=== PATIENT | male | born 1960 | race Caucasian/White ===

== ENCOUNTER 2024-05-10 20:01 | Inpatient (IN) | payer MEDICARE, OTHER ==
[~2024-05-10] VITALS: Ht 177.8 cm; Wt 78.0 kg
[2024-05-10 21:28] LABS: COVID AG,FIA SOURCE NASAL SWAB
[2024-05-10 21:39] LABS: SARS-COV2 (COVID) ANTIGEN,FIA Negative (Negative)
[2024-05-10 21:54] LABS: BASOPHILS % (AUTO) 3.7 % (0.0-2.0); EOSINOPHILS % (AUTO) 1.6 % (1.0-6.0); HEMOGLOBIN 11.5 g/dL (13.5-17.5); LYMPHOCYTES # (AUTO) 1.2 K/uL (1.0-4.8); LYMPHOCYTES % (AUTO) 31.2 % (22.0-44.0); MEAN CORPUSCULAR HEMOGLOBIN 31.8 pg (26.0-34.0); MEAN CORPUSCULAR VOLUME 99 fL (80-100); MONOCYTES # (AUTO) 0.6 K/uL (0.1-1.0); MONOCYTES % (AUTO) 15.3 % (2.0-9.0); NEUTROPHILS # (AUTO) 1.9 K/uL (1.8-7.7); NEUTROPHILS % (AUTO) 48.2 % (40.0-70.0); PLATELET COUNT (AUTO) 103 K/uL (150-450); RED BLOOD CELL COUNT(AUTO) 3.63 MIL/uL (4.50-5.90); RED CELL DISTRIBUTION WIDTH 14.4 % (11.5-14.5); WHITE BLOOD COUNT (AUTO) 3.9 K/uL (4.5-11.0)
[2024-05-10 22:02] LABS: ANION GAP 8 mmol/L (8-16); CALCIUM, TOTAL 8.2 mg/dL (8.8-10.5); CARBON DIOXIDE 28 mmol/L (22-29); CHLORIDE 100 mmol/L (98-107); CREATININE 0.76 mg/dL (0.60-1.30); GLOMERULAR FILTR. RATE CALC > 60 mL/min (>60); GLUCOSE,RANDOM 92 mg/dL (70-110); POTASSIUM 3.7 mmol/L (3.5-5.1); SODIUM SERUM 136 mmol/L (136-145); UREA NITROGEN, BLOOD 6 mg/dL (7-18)
[2024-05-10 22:03] LABS: ALCOHOL, BLOOD (SERUM) 125 mg/dL (0-10)
[2024-05-11] VITALS (13 sets, daily range): BP systolic 125–164; BP diastolic 68–106; PULSE 84–109; RESP 16–20; TEMP 98–99.7; O2SAT 95–99
[2024-05-11 02:34] LABS: APPEARANCE,URINE CLEAR (CLEAR); BILIRUBIN,URINE NEGATIVE (NEGATIVE); COLOR,URINE YELLOW (YELLOW); GLUCOSE, URINE (UA) NEGATIVE (NEGATIVE); KETONES,URINE TRACE mg/dL (NEGATIVE); LEUKOCYTE ESTERASE ,URINE NEGATIVE (NEGATIVE); NITRATE,URINE NEGATIVE (NEGATIVE); OCCULT BLOOD,URINE NEGATIVE (NEGATIVE); PROTEIN,URINE TRACE mg/dL (NEGATIVE); SPECIFIC GRAVITIY, URINE 1.014 (1.003-1.030)
[2024-05-11 02:42] LABS: AMPHET/METH SCREEN,URINE NEGATIVE (NEGATIVE); BARBITURATE SCREEN, URINE NEGATIVE (NEGATIVE); BENZODIAZEPINES SCREEN,URINE NEGATIVE (NEGATIVE); CANNABINOID SCREEN,URINE POSITIVE (NEGATIVE); COCAINE SCREEN,URINE NEGATIVE (NEGATIVE); METHADONE SCREEN, URINE NEGATIVE (NEGATIVE); OPIATE SCREEN,URINE NEGATIVE (NEGATIVE); PHENCYCLIDINE SCREEN,URINE NEGATIVE (NEGATIVE)
[2024-05-11 02:46] LABS: ALCOHOL, URINE DRUG SCREEN POSITIVE (NEGATIVE)
[2024-05-11] MEDS: FLECAINIDE ACETATE 50 MG TABLET PO SCH (16:00)
[2024-05-11] MEDS: LORazepam 2 MG TABLET PO PRN (17:20)
[2024-05-11] MEDS ORDERED: ChlordiazePOXIDE HCL 25 MG CAPSULE PO PRN (18:00)
[2024-05-12 04:25] VITALS: BP 147/95; PULSE 88; RESP 18; TEMP 97.9; O2SAT 100
[2024-05-12] MEDS ORDERED: ChlordiazePOXIDE HCL 25 MG CAPSULE PO PRN (07:00)
[2024-05-12 08:04] VITALS: BP 134/77; PULSE 85; RESP 18; TEMP 97.7; O2SAT 99
[2024-05-12 08:10] VITALS: BP 134/77; PULSE 85; RESP 18; TEMP 97.7; O2SAT 99
[2024-05-12] MEDS: THIAMINE 100 MG TABLET PO SCH (08:12)
[2024-05-12] MEDS: ChlordiazePOXIDE HCL 25 MG CAPSULE PO SCH (08:13)
[2024-05-12] MEDS: FOLIC ACID 1 MG TABLET PO SCH (08:13)
[2024-05-12 08:23] LABS: HEMOGLOBIN A1C 4.4 % (3.8-5.6)
[2024-05-12 08:43] LABS: CHOL/HDL RATIO 2.6 (4.2-7.3)
[2024-05-12 12:15] VITALS: BP 130/79; PULSE 80; RESP 18; TEMP 98.3; O2SAT 96
[2024-05-12] MEDS ORDERED: MAG HYDROX/ALUMINUM HYD/SIMETH ES 30 ML SUSPENSION UDCUP PO PRN (12:15)
[2024-05-12] MEDS ORDERED: ALBUTEROL SULFATE HFA 90 MCG/PUFF 8 GM INHALER IH PRN (12:15)
[2024-05-12] MEDS ORDERED: DOCUSATE SODIUM 100 MG CAPSULE PO PRN (12:15)
[2024-05-12] MEDS ORDERED: LOPERAMIDE HCL 2 MG CAPSULE PO PRN (12:15)
[2024-05-12] MEDS ORDERED: PETROLATUM,WHITE 28 GM JELLY TP PRN (12:15)
[2024-05-12] MEDS ORDERED: ONDANSETRON 4 MG TABLET PO PRN (12:15)
[2024-05-12] MEDS ORDERED: IBUPROFEN 400 MG TABLET PO PRN (12:15)
[2024-05-12] MEDS ORDERED: CloNIDine HCL 0.1 MG TABLET PO PRN (12:15)
[2024-05-12] MEDS ORDERED: NICOTINE 14 MG/24 HOUR PATCH TD PRN (12:15)
[2024-05-12] MEDS ORDERED: ACETAMINOPHEN 325 MG TABLET PO PRN (12:15)
[2024-05-12] MEDS ORDERED: MAGNESIUM HYDROXIDE SUSPENSION 30 ML UDCUP PO PRN (12:15)
[2024-05-12] MEDS ORDERED: GuaiFENesin/D-METHORPHAN [SUGAR-FREE] 200-20MG/10 ML SYRUP UDCUP PO PRN (12:15)
[2024-05-12 16:56] VITALS: BP 129/86; PULSE 100; RESP 17; O2SAT 100
[2024-05-12 20:00] VITALS: BP 127/71; PULSE 99; RESP 18; TEMP 97.5; O2SAT 99
[2024-05-13] VITALS (8 sets, daily range): BP systolic 104–154; BP diastolic 65–90; PULSE 72–104; RESP 16–18; TEMP 97.8–98.8; O2SAT 96–100
[2024-05-13] MEDS: MAGNESIUM OXIDE 400 MG TABLET PO SCH (08:26)
[2024-05-13] MEDS: POTASSIUM CHLORIDE 10 MEQ ER TABLET PO SCH (08:26)
[2024-05-13 08:59] LABS: HEMOGLOBIN A1C 4.2 % (3.8-5.6)
[2024-05-13 09:20] LABS: CHOL/HDL RATIO 3.1 (4.2-7.3); THYROID STIMULATING HORMONE 2.31 uIU/mL (0.36-3.74)
[2024-05-14] MEDS ORDERED: ChlordiazePOXIDE HCL 10 MG CAPSULE PO PRN (07:00)
[2024-05-14] MEDS: ChlordiazePOXIDE HCL 10 MG CAPSULE PO SCH (08:21)
[2024-05-14 08:24] VITALS: BP 124/68; PULSE 89; RESP 18; TEMP 97; O2SAT 98
[2024-05-14 11:41] VITALS: BP 148/83; PULSE 96; RESP 18; TEMP 97.2; O2SAT 98
[2024-05-14] MEDS: HALOPERIDOL 5 MG TABLET PO PRN (12:15)
[2024-05-14 20:00] VITALS: BP 150/87; PULSE 99; RESP 18; TEMP 98.3; O2SAT 97; O2SAT 98
[2024-05-14] MEDS: ZOLPIDEM TARTRATE 5 MG TABLET PO PRN (20:08)
[2024-05-15] MEDS ORDERED: ChlordiazePOXIDE HCL 10 MG CAPSULE PO PRN (07:00)
[2024-05-15 12:37] VITALS: BP 146/75; PULSE 98; RESP 16; TEMP 98.9; O2SAT 97
[2024-05-15] MEDS: POTASSIUM CHLORIDE 20 MEQ ER TABLET PO ONE (13:10)
[2024-05-15 17:06] VITALS: BP 140/80; PULSE 88; RESP 18; TEMP 98.1; O2SAT 98
[2024-05-15 17:08] VITALS: BP 122/82; PULSE 88; RESP 18; TEMP 98.2; O2SAT 98
[2024-05-15 20:00] VITALS: BP 149/85; PULSE 99; RESP 18; TEMP 98; O2SAT 98
[2024-05-16 08:06] VITALS: BP 121/72; PULSE 98; RESP 16; TEMP 97.8; O2SAT 94
[2024-05-16] MEDS: POTASSIUM CHLORIDE 20 MEQ ER TABLET PO ONE (10:49)
[2024-05-16 20:16] VITALS: BP 150/91; PULSE 88; RESP 17; TEMP 97.1; O2SAT 95
[2024-05-17 09:34] LABS: ANION GAP 6 mmol/L (8-16); CALCIUM, TOTAL 9.4 mg/dL (8.8-10.5); CARBON DIOXIDE 31 mmol/L (22-29); CHLORIDE 99 mmol/L (98-107); CREATININE 0.84 mg/dL (0.60-1.30); GLOMERULAR FILTR. RATE CALC > 60 mL/min (>60); GLUCOSE,RANDOM 84 mg/dL (70-110); POTASSIUM 4.1 mmol/L (3.5-5.1); SODIUM SERUM 136 mmol/L (136-145); UREA NITROGEN, BLOOD 9 mg/dL (7-18)
[2024-05-17 09:37] LABS: APPEARANCE,URINE CLEAR (CLEAR); BILIRUBIN,URINE NEGATIVE (NEGATIVE); COLOR,URINE LIGHT YELLOW (YELLOW); GLUCOSE, URINE (UA) NEGATIVE (NEGATIVE); KETONES,URINE NEGATIVE (NEGATIVE); LEUKOCYTE ESTERASE ,URINE NEGATIVE (NEGATIVE); NITRATE,URINE NEGATIVE (NEGATIVE); OCCULT BLOOD,URINE NEGATIVE (NEGATIVE); PROTEIN,URINE NEGATIVE (NEGATIVE); SPECIFIC GRAVITIY, URINE 1.009 (1.003-1.030); UROBILINOGEN,URINE <=1.0 mg/dL (<=1.0)
[2024-05-17 09:48] LABS: ALCOHOL, URINE DRUG SCREEN NEGATIVE (NEGATIVE); AMPHET/METH SCREEN,URINE NEGATIVE (NEGATIVE); BARBITURATE SCREEN, URINE NEGATIVE (NEGATIVE); BENZODIAZEPINES SCREEN,URINE POSITIVE (NEGATIVE); CANNABINOID SCREEN,URINE POSITIVE (NEGATIVE); COCAINE SCREEN,URINE NEGATIVE (NEGATIVE); METHADONE SCREEN, URINE NEGATIVE (NEGATIVE); OPIATE SCREEN,URINE NEGATIVE (NEGATIVE); PHENCYCLIDINE SCREEN,URINE NEGATIVE (NEGATIVE)
[2024-05-17 09:50] VITALS: BP 127/80; PULSE 113; RESP 18; TEMP 97.6; O2SAT 99
[2024-05-17] MEDS: RisperiDONE 1 MG TABLET PO SCH (11:52)
[2024-05-17 16:43] VITALS: BP 121/75; PULSE 98; RESP 18
[2024-05-17 20:25] VITALS: BP 120/69; PULSE 75; RESP 18; TEMP 97.5; O2SAT 97
[2024-05-18 08:13] VITALS: BP 127/75; PULSE 71; RESP 18; TEMP 96.2; O2SAT 100
[2024-05-18] MEDS ORDERED: RISP-31 PO (12:14)
[2024-05-18] MEDS ORDERED: FLEC50 PO (12:21)
== END 2024-05-18 13:00 | disposition home or self-care (01) | DRG 885 ==
LOC: EMS 20:01 → B2X 05-11 08:33
PROVIDERS: ADMIT Psychiatry & Neurology Child & Adolescent Psychiatry; ATTEND Psychiatry & Neurology Child & Adolescent Psychiatry
PROC: GZ56ZZZ Individual Psychotherapy, Supportive (ICD-10-PCS; principal; 2024-05-12)
DX: F29 Unspecified psychosis not due to a substance or known physiological condition (principal); F33.2 Major depressive disorder, recurrent severe without psychotic features; D61.818 Other pancytopenia; Z20.822 Contact with and (suspected) exposure to COVID-19; F20.9 Schizophrenia, unspecified; F10.10 Alcohol abuse, uncomplicated; F17.210 Nicotine dependence, cigarettes, uncomplicated; G89.29 Other chronic pain; Y90.6 Blood alcohol level of 120-199 mg/100 ml
CPT/HCPCS: 80048; 80061; 80307; 81003; 83036; 84132; 84443; 85025; 99285; G0480

== ENCOUNTER → 2024-05-11 | Emergency (ER) | payer OTHER ==
[~2024-05-11] VITALS: Ht 177.8 cm; Wt 72.7 kg
[2024-05-12 00:23] VITALS: TEMP 98.9
[2024-05-12 03:29] VITALS: BP 151/79; PULSE 87; RESP 16; O2SAT 99
== END | disposition home or self-care (01) ==
LOC: EMS 23:29
DX: Z00.00 Encounter for general adult medical examination without abnormal findings (principal); F20.9 Schizophrenia, unspecified; W23.0XXA Caught, crushed, jammed, or pinched between moving objects, initial encounter; Y93.89 Activity, other specified; Y92.89 Other specified places as the place of occurrence of the external cause
CPT/HCPCS: 99283; Z7502